=== PATIENT | male | born 1975 | race Asian ===

== ENCOUNTER 2016-05-17 15:27 | Outpatient (CLI) | payer OTHER | END 2016-05-17 15:28 | disposition home or self-care (01) | LOC: SC 15:27 | PROVIDERS: ATTEND Nurse Practitioner Family | DX: G47.33 Obstructive sleep apnea (adult) (pediatric) (principal) | CPT/HCPCS: 99212; 99214 ==

== ENCOUNTER 2016-07-03 11:04 | Outpatient (CLI) | payer OTHER | END 2016-07-03 11:05 | disposition home or self-care (01) | DX: G47.33 Obstructive sleep apnea (adult) (pediatric) (principal) ==

== ENCOUNTER 2016-07-31 11:08 | Outpatient (CLI) | payer OTHER | END 2016-07-31 11:09 | disposition home or self-care (01) | DX: G47.33 Obstructive sleep apnea (adult) (pediatric) (principal) ==

== ENCOUNTER 2016-11-02 11:21 | Outpatient (CLI) | payer OTHER | END 2016-11-02 11:22 | disposition home or self-care (01) | LOC: SC 11:21 | PROVIDERS: ATTEND Nurse Practitioner Family | DX: G47.33 Obstructive sleep apnea (adult) (pediatric) (principal) | CPT/HCPCS: 99212; 99214 ==

== ENCOUNTER 2017-09-17 13:32 | Outpatient (CLI) | payer OTHER | END 2017-09-17 13:33 | disposition home or self-care (01) | LOC: SC 13:32 | PROVIDERS: ATTEND Internal Medicine Pulmonary Disease | DX: G47.33 Obstructive sleep apnea (adult) (pediatric) (principal) | CPT/HCPCS: 99212; 99213 ==